=== PATIENT | female | born 2000 | race Two or more races ===

== ENCOUNTER 2023-08-29 15:54 | Emergency (ER) | payer MEDICAID ==
[~2023-08-29] VITALS: Ht 167.6 cm; Wt 71.7 kg
[2023-08-29 18:01] VITALS: TEMP 98.9
[2023-08-29 18:12] LABS: BILIRUBIN,URINE 1+ (NEGATIVE); BLOOD, URINE TRACE-INTA Ery/uL (NEGATIVE); COLOR,URINE YELLOW (YELLOW); KETONES,URINE TRACE mg/dL (NEGATIVE); LEUKOCYTE ESTERASE ,URINE 1+ (NEGATIVE); NITRITE, URINE POSITIVE (NEGATIVE); PROTEIN,URINE TRACE mg/dl (NEGATIVE); UGLUCOSE NEGATIVE (NEGATIVE)
[2023-08-29 18:13] LABS: APPEARANCE,URINE HAZY (CLEAR)
[2023-08-29 18:18] LABS: PREGNANCY TEST URINE QUAL NEGATIVE (NEGATIVE)
[2023-08-29 18:36] LABS: ADD URINE CULTURE YES; BACTERIA,URINE Many /HPF (None Seen); SQUAMOUS EPITHELIAL CELL,UR Few /HPF (None Seen)
[2023-08-29] MEDS ORDERED: SULF1TAB48 PO (18:45)
[2023-08-29 18:59] VITALS: BP 107/66; O2SAT 100
[2023-09-04] MEDS ORDERED: CEPH500C2 PO (09:38)
== END 2023-08-29 18:59 | disposition home or self-care (01) ==
LOC: ER 15:59
DX: N39.0 Urinary tract infection, site not specified (principal); R10.2 Pelvic and perineal pain; E03.9 Hypothyroidism, unspecified; Z79.899 Other long term (current) drug therapy
CPT/HCPCS: 81001; 84703-TC; 87086-TC

== ENCOUNTER 2023-11-10 16:10 | Emergency (ER) | payer MEDICAID ==
[~2023-11-10] VITALS: Ht 170.2 cm; Wt 73.5 kg
[~2023-11-10 16:10] MED LIST: CEPH500C2 PO; SULF1TAB48 PO
[2023-11-10 16:26] VITALS: BP 127/70; TEMP 98.2; O2SAT 99
[2023-11-10] MEDS ORDERED: CIPR7.5D9 LEFT EAR (16:35)
[2023-11-10] MEDS ORDERED: AMOX500C2 PO (16:35)
== END 2023-11-10 16:49 | disposition home or self-care (01) ==
LOC: ER 16:29
DX: H60.92 Unspecified otitis externa, left ear (principal); H66.92 Otitis media, unspecified, left ear; E03.9 Hypothyroidism, unspecified

== ENCOUNTER 2024-10-01 02:52 | Emergency (ER) | payer MEDICAID, OTHER ==
[~2024-10-01] VITALS: Ht 177.8 cm; Wt 81.2 kg
[~2024-10-01 02:52] MED LIST changes: +AMOX500C2 PO; +CIPR7.5D9 LEFT EAR
[2024-10-01 03:14] VITALS: BP 146/84; TEMP 98.3; O2SAT 99
[2024-10-01 03:31] LABS: APPEARANCE,URINE SLIGHTLY CLOUDY (CLEAR); BLOOD, URINE 3+ Ery/uL (NEGATIVE); LEUKOCYTE ESTERASE ,URINE 2+ (NEGATIVE); NITRITE, URINE POSITIVE (NEGATIVE); UGLUCOSE NEGATIVE (NEGATIVE)
[2024-10-01] MEDS ORDERED: PHENAZOPYRIDINE HCL 200 MG TABLET ONE (03:31)
[2024-10-01] MEDS: PHENAZOPYRIDINE HCL 200 MG TABLET PO ONE (03:32)
[2024-10-01 03:33] LABS: PREGNANCY TEST URINE QUAL NEGATIVE (NEGATIVE)
[2024-10-01] MEDS ORDERED: PHEN-704 PO (03:34)
[2024-10-01] MEDS ORDERED: NITR100C6 PO (03:34)
[2024-10-01] MEDS: NITROFURANTOIN/MONOHYDRATE MACROCRYSTALS 100 MG CAPSULE PO ONE (03:37)
[2024-10-01] MEDS ORDERED: NITROFURANTOIN/MONOHYDRATE MACROCRYSTALS 100 MG CAPSULE ONE (03:37)
[2024-10-01 03:39] LABS: ADD URINE CULTURE YES
[2024-10-01 03:40] LABS: SQUAMOUS EPITHELIAL CELL,UR Moderate /HPF (None Seen)
== END 2024-10-01 03:40 | disposition home or self-care (01) ==
LOC: ER 02:54
DX: N39.0 Urinary tract infection, site not specified (principal); E03.9 Hypothyroidism, unspecified; Z79.899 Other long term (current) drug therapy
CPT/HCPCS: 81001; 84703-TC; 87086-TC; 87186-TC